=== PATIENT | female | born 1950 | race Caucasian/White ===

== ENCOUNTER 2023-01-22 13:06 | Outpatient (CLI) | payer MEDICARE, SELFPAY ==
--- NOTE | ~2023-01-22 | XR_ITS ---
XR knee LT min 4V DATE: 01/22/2023 13:28 INDICATION: Primary osteoarthritis, left knee TECHNIQUE: [place], lateral and weightbearing AP and PA views COMPARISON: 01/20/2022 left knee FINDINGS: There is tricompartment osteoarthritis. There is mild periarticular spurring of the at the patellofemoral joint. There is moderately prominent loss of height at medial and lateral compartment joint spaces with periarticular spurring at each of these compartments. No radiopaque intra-articular loose body or, calcinosis is noted. Mild suprapatellar knee joint effus ion is suggested. No fracture or dislocation, periosteal reaction or bone destruction. IMPRESSION: Moderately prominent tricompartment osteoarthritis Reviewed, dictated and finalized at location L.
== END 2023-01-22 13:07 | disposition home or self-care (01) ==
PROVIDERS: PCP Family Medicine; Visit Provider Orthopaedic Surgery
DX: M17.12 Unilateral primary osteoarthritis, left knee (principal)
CPT/HCPCS: 73564